=== PATIENT | male | born 1950 | race Caucasian/White ===

== ENCOUNTER 2022-09-10 15:46 | Emergency (ER) | payer MEDICARE, BC ==
[2022-09-10] MEDS ORDERED: Sodium Chloride 0.9% 2.5 ML Syringe FLUSH PRN (16:41)
[2022-09-10] MEDS ORDERED: Sodium Chloride 0.9% 10 ML Syringe FLUSH PRN (16:41)
[2022-09-10 16:48] LABS: HEMATOCRIT 33.8 % (38.0-50.0); HEMOGLOBIN 11.5 g/dL (13.0-17.0); MEAN CORPUSCULAR VOLUME 85.4 fL (80.0-98.0); PLATELET COUNT,PLT 291 K/uL (150-400); RED BLOOD CELL COUNT 3.96 M/uL (4.50-5.90); WHITE BLOOD CELL COUNT,WBC 12.75 K/uL (4.0-11.0)
[2022-09-10 17:12] LABS: BAND ABSOLUTE MAN 0.4; LYMPHOCYTES ABSOLUTE MAN 0.4 (0.6-2.4); LYMPHOCYTES PERCENT MAN 3 % (16.0-40.0); MONOCYTES ABSOLUTE MAN 0.4 (0.0-0.8); MONOCYTES PERCENT MAN 3 % (0.0-15.0); SEG NEUTROPHILS PERCENT MAN 94 % (48.0-80.0)
[2022-09-10 17:24] LABS: A/G RATIO 0.5 (0.9-1.6); ALBUMIN 1.9 g/dL (3.4-5.0); BILIRUBIN TOTAL 1.5 mg/dL (0.2-1.0); CALCIUM 7.5 mg/dL (8.5-10.1); CARBON DIOXIDE,CO2 26.9 mmol/L (21.0-32.0); CREATININE 3.8 mg/dL (0.8-1.3); EST CRCL DRUG DOSING (CG) 19.85 mL/min; POTASSIUM,K 4.5 mmol/L (3.5-5.1)
[2022-09-10 17:42] LABS: APPEARANCE,URINE CLEAR; BILIRUBIN,URINE NEGATIVE (NEGATIVE); COLOR,URINE YELLOW; GLUCOSE,URINE NEGATIVE (NEGATIVE); KETONES,URINE NEGATIVE (NEGATIVE); LEUKOCYTE ESTERASE,URINE NEGATIVE (NEGATIVE); NITRITE,URINE NEGATIVE (NEGATIVE); OCCULT BLOOD,URINE NEGATIVE (NEGATIVE); PROTEIN,URINE NEGATIVE (NEGATIVE); UROBILINOGEN,URINE 0.2 EU/dL (<2.0)
== END 2022-09-10 17:30 | disposition left against medical advice (07) ==
LOC: MW.ED 15:46
DX: E88.09 Other disorders of plasma-protein metabolism, not elsewhere classified (principal); E87.1 Hypo-osmolality and hyponatremia; E83.51 Hypocalcemia; D72.828 Other elevated white blood cell count; I13.0 Hypertensive heart and chronic kidney disease with heart failure and stage 1 through stage 4 chronic kidney disease, or unspecified chronic kidney disease; N18.4 Chronic kidney disease, stage 4 (severe); I50.42 Chronic combined systolic (congestive) and diastolic (congestive) heart failure; I48.21 Permanent atrial fibrillation; I34.0 Nonrheumatic mitral (valve) insufficiency
CPT/HCPCS: 36415; 71045; 80053; 81003; 83735; 85007; 85027; 87040; 87154; 93005; 99284; J3490; 87077; 87186; 93010; 99285